=== PATIENT | female | born 1955 | race Caucasian/White ===

== ENCOUNTER → 2021-12-25 | Outpatient (CLI) | payer MEDICARE ==
--- NOTE | 2021-12-25 15:04 | Diagnostic Imaging Report ---
INDICATION: Pain in the left knee. TIME OF EXAM: 2:28 PM. TECHNIQUE: Multiple views of the left knee were obtained. FINDINGS: There is significant patellofemoral compartment degenerative change with joint space narrowing and marginal spurring. The medial and lateral compartments are fairly well maintained. There is some spurring at the medial compartment. There is also spurring of the tibial spines. No fracture, dislocation, or effusion is identified. IMPRESSION: Degenerative changes. No acute bony abnormality is detected. Dictated by: Dictated on workstation # [id number]
--- NOTE | 2021-12-25 15:05 | Diagnostic Imaging Report ---
INDICATION: Pain in the left wrist. TIME OF EXAM: 2:33 PM. TECHNIQUE: Three views of the left wrist were obtained. FINDINGS: The distal radius and ulna are intact. The carpus and metacarpals are intact. No fractures are identified. IMPRESSION: No acute bony abnormality is detected. Dictated by: Dictated on workstation # [id number]
== END ==
LOC: ORTHO 14:21
PROVIDERS: ATTEND Orthopaedic Surgery
DX: M17.12 Unilateral primary osteoarthritis, left knee (principal); M25.532 Pain in left wrist
CPT/HCPCS: 20526; 20610; 73110; 73564; G0463

== ENCOUNTER → 2022-02-19 | Outpatient (CLI) | payer MEDICARE | LOC: ORTHO 14:20 | PROVIDERS: ATTEND Orthopaedic Surgery | DX: M25.532 Pain in left wrist (principal); I10 Essential (primary) hypertension; E11.9 Type 2 diabetes mellitus without complications | CPT/HCPCS: 99213 ==

== ENCOUNTER → 2022-06-25 | Outpatient (CLI) | payer MEDICARE | LOC: ORTHO 11:48 | PROVIDERS: ATTEND Orthopaedic Surgery | DX: M17.12 Unilateral primary osteoarthritis, left knee (principal) | CPT/HCPCS: 20610 ==

== ENCOUNTER → 2023-02-09 | Outpatient (CLI) | payer MEDICARE | LOC: ORTHO 11:33 | PROVIDERS: ATTEND Orthopaedic Surgery | DX: M17.12 Unilateral primary osteoarthritis, left knee (principal); M25.642 Stiffness of left hand, not elsewhere classified; M25.641 Stiffness of right hand, not elsewhere classified | CPT/HCPCS: 20610; G0463; 99213 ==